=== PATIENT | female | born 1960 | race Caucasian/White ===

== ENCOUNTER 2017-07-22 02:52 | Emergency (ER) | payer OTHER ==
[~2017-07-22] VITALS: Ht 154.9 cm; Wt 63.6 kg
[2017-07-22 03:27] LABS: HEMATOCRIT 41.5 % (36.0-46.0); HEMOGLOBIN 13.8 G/DL (11.9-15.5); MCH 30.7 PG (29.0-34.0); MCHC 33.3 G/DL (30.0-36.0); MCV 92.4 FL (83-99); PLATELET COUNT 256 K/uL (156-360); RBC DIS.WIDTH-CV 12.7 % (11.8-14.6); RBC DIS.WIDTH-SD 43.1 % (39-53); RED BLOOD COUNT 4.49 M/uL (3.80-5.20); WHITE BLOOD COUNT 8.1 K/uL (4.1-10.2)
[2017-07-22 03:35] LABS: ALBUMIN 4.4 g/dL (3.2-4.8)
[2017-07-22 03:36] LABS: CHLORIDE 108 mEq/L (99-109); SODIUM 140 mEq/L (136-147)
[2017-07-22 03:38] LABS: GLUCOSE 102 mg/dL (70-99); TOTAL PROTEIN 6.6 g/dL (6.4-8.3)
[2017-07-22 03:40] LABS: TOTAL BILIRUBIN 0.4 mg/dL (0.0-1.0)
[2017-07-22 03:41] LABS: ALKALINE PHOSPHATASE 84 IU/L (3-129)
[2017-07-22 03:42] LABS: CREATININE 0.7 mg/dL (0.6-1.3); GFR ESTIMATE (CALCULATED) > 59 mL/min/
[2017-07-22 03:43] LABS: AST (GOT) 13 IU/L (2-34); UREA NITROGEN (BUN) 10 mg/dL (9-23)
[2017-07-22 03:45] LABS: ALT (GPT) 3 IU/L (3-49); LIPASE 37 U/L (1.0-51.0)
[2017-07-22 04:00] LABS: APPEARANCE SL.HAZY ((CLEAR)); BILIRUBIN NEGATIVE; BLOOD NEGATIVE; COLOR YELLOW ((YELLOW)); GLUCOSE (STRIP) NEGATIVE; KETONES 5; LEUKOCYTES LARGE; NITRITE NEGATIVE; PROTEIN (STRIP) NEGATIVE; SPECIFIC GRAVITY 1.023 (1.000-1.030); UROBILINOGEN 0.2 MG/DL (0.2-1.0)
[2017-07-22 05:02] LABS: BACTERIA RARE /HPF; EPITHELIAL CELLS 1+ /HPF; MUCUS 1+ /LPF; RED BLOOD CELLS 0-5 /HPF (0-5); UCUL ADDED? YES; WHITE BLOOD CELLS 20-30 /HPF (0-5)
[2017-07-22] MEDS ORDERED: BACTRIM,SEPT1 TABLET PO (06:10)
[2017-07-22] MEDS ORDERED: PYRIDIUM200 MG PO (06:10)
[2017-07-22 06:32] VITALS: BP 105/46
== END 2017-07-22 06:33 | disposition home or self-care (01) ==
LOC: EME 02:52
DX: N30.00 Acute cystitis without hematuria (principal); G25.81 Restless legs syndrome
CPT/HCPCS: 80053; 81003; 83690; 85027; 87086; 99281; 99284